=== PATIENT | male | born 1990 | race Caucasian/White ===

== ENCOUNTER 2018-07-16 13:30 | Emergency (ER) | payer SELFPAY ==
[2018-07-16] MEDS ORDERED: XYLOCAINE 1% HCL 20 ML MDV IJ ONE ×2 (13:44→14:09)
[2018-07-16] MEDS ORDERED: BACIGUENT PACKET TP ONE (13:44)
[2018-07-16] MEDS ORDERED: Adacel Vial IM ONE ×2 (13:44→14:08)
[2018-07-16] MEDS ORDERED: Sodium Chloride 0.9% 1000 ML 1,000 ML ONE (13:49)
--- NOTE | 2018-07-16 13:57 | ERPHSYRPT ---
- History of Present Illness Time Seen by Provider: 07/16/18 13:32 Source: patient Exam Limitations: no limitations Physician History: 27-year-old white male arrives with complaint of laceration to his left mid paige symptoms since just prior to arrival. According to patient he was working on a plank the playing fell patient fell approximately 10 feet he lacerated his left mid paige on the plank. He has a large 20 cm laceration to the left anterior paige. He denies any other complaints he has full range of motion to all extremities he denies any other injuries. Past medical history is negative. Past surgical history is negative. Social history patient denies tobacco alcohol or illict drug Use. Patient is unsure of as to when last tetanus was. Method of Injury: unknown (fell and lit left paige on plank at work) Occurred: just prior to arrival Quality: constant Severity of Pain-Max: mild Severity of Pain-Current: mild Lower Extremities Pain: leg: left Modifying Factors: Improves With: nothing Associated Symptoms: none Allergies/Adverse Reactions: No Known Drug Allergies Allergy (Verified 07/16/18 14:03) Home Medications: No Reportable Medications [No Reported Medications] 07/16/18 [History] - Review of Systems Constitutional: No Fever, No Chills Eyes: No Symptoms Ears, Nose, & Throat: No Symptoms Respiratory: No Cough, No Dyspnea Cardiac: No Chest Pain, No Edema, No Syncope Abdominal/Gastrointestinal: No Abdominal Pain, No Nausea, No Vomiting, No Diarrhea Genitourinary Symptoms: No Dysuria Musculoskeletal: Other (20 cm laceration left anterior paige) Skin: Other (20 cm laceration left anterior paige gaping) Neurological: No Dizziness, No Focal Weakness, No Sensory Changes Psychological: No Symptoms Endocrine: No Symptoms All Other Systems: Reviewed and Negative - Past Medical History Pertinent Past Medical History: No - Past Surgical History Past Surgical History: No - Nursing Vital Signs Nursing Vital Signs: Initial Vital Signs Temperature 98.1 F 07/16/18 13:43 Pulse Rate 91 H 07/16/18 13:43 Blood Pressure 130/82 07/16/18 13:43 O2 Sat by Pulse Oximetry 100 07/16/18 13:43 Pain Scale Pain Intensity 5 - Physical Exam General Appearance: mild distress Eyes, Ears, Nose, Throat Exam: moist mucous membranes Neck Exam: non-tender, supple Cardiovascular/Respiratory Exam: chest non-tender, normal breath sounds, regular rate/rhythm, no respiratory distress Gastrointestinal/Abdominal Exam: non-tender, guarding Back Exam: normal inspection, normal range of motion, No CVA tenderness, No vertebral tenderness, No decreased range of motion, No muscle spasm, No point tenderness Hips Exam: bilateral: non-tender, normal inspection, normal range of motion, no evidence of injury Legs Exam: right leg: non-tender, normal inspection, normal range of motion, left leg: other (20 cm laceration left anterior paige gaping) Knees Exam: bilateral knee: non-tender, normal inspection, normal range of motion, no evidence of injury Ankle Exam: bilateral ankle: non-tender, normal inspection, normal range of motion, no evidence of injury Foot Exam: bilateral foot: non-tender, normal inspection, normal range of motion , no evidence of injury DTR - Lower Extremities Exam: ankle (R): 2+, ankle (L): 2+ Neuro/Tendon Exam: normal sensation Mental Status Exam: alert, oriented x 3, cooperative Skin Exam: other (20 cm laceration left anterior paige gaping) SpO2 Interpretation: normal - Course Nursing assessment & vital signs reviewed: Yes - Radiology Exams Left Lower Leg X-ray Interpretation: Discussed w/ radiologist (x-ray left leg: Large proximal anterior soft tissue laceration. No other bony, articular or soft tissue abnormalities.) Ordered Tests: Active Orders 24 hr Category Date Time Status Wound Care STAT Care 07/16/18 13:44 Active LOWER LEG Stat Exams 07/16/18 13:51 Completed Medication Summary Discontinued Medications Generic Name Dose Route Start Last Admin Trade Name Freq PRN Reason Stop Dose Admin Bacitracin Zinc 0.9 gm 07/16/18 13:44 Baciguent Packet TP 07/16/18 13:45 STAT ONE Bacitracin Zinc Confirm 07/16/18 14:08 Baciguent Packet Administered 07/16/18 14:09 Dose 1 gm .ROUTE .STK-MED ONE Diphtheria/Tetanus/Acell Pertussis 0.5 ml 07/16/18 13:44 07/16/18 14:16 Adacel Vial IM 07/16/18 13:45 0.5 ml .ONCE ONE Administration Diphtheria/Tetanus/Acell Pertussis Confirm 07/16/18 14:08 Adacel Vial Administered 07/16/18 14:09 Dose 0.5 ml IM .STK-MED ONE Sodium Chloride Confirm 07/16/18 13:49 Sodium Chloride 0.9% 1000 Ml Administered 07/16/18 13:50 Dose 1,000 mls @ ud .ROUTE .STK-MED ONE Lidocaine HCl 5 ml 07/16/18 13:44 Xylocaine 1% Hcl 20 Ml Mdv IJ 07/16/18 13:45 STAT ONE Lidocaine HCl 5 ml 07/16/18 14:09 Xylocaine 1% Hcl 20 Ml Mdv IJ 07/16/18 14:10 STAT ONE Lidocaine HCl Confirm 07/16/18 14:08 Xylocaine 1% Hcl 20 Ml Mdv Administered 07/16/18 14:09 Dose 5 ml .ROUTE .STK-MED ONE Lidocaine HCl Confirm 07/16/18 14:09 Xylocaine 1% Hcl 20 Ml Mdv Administered 07/16/18 14:10 Dose 5 ml .ROUTE .STK-MED ONE - Progress Progress: improved Progress Note: 07/16/18 14:36 Laceration repair left lower leg. Laceration reassessed noted to be 18 cm. No foreign bodies are noted. Laceration was sterilely prepped and draped. laceration copiously irrigated by nurse with saline. Anesthetized with 1% lidocaine. Laceration repaired using 32 surgical liam. Bacitracin and sterile dressing are applied. 07/16/18 14:38 07/16/18 14:39 Patient received DTaP injection here in the emergency room. - Departure Time of Disposition: 14:37 Departure Disposition: Home Clinical Impression: Laceration of left leg Qualifiers: Encounter type: initial encounter Qualified Code(s): S81.812A - Laceration without foreign body, left lower leg, initial encounter Contusion of left leg Qualifiers: Encounter type: initial encounter Qualified Code(s): S80.12XA - Contusion of left lower leg, initial encounter Accidental fall Qualifiers: Encounter type: initial encounter Qualified Code(s): W19.XXXA - Unspecified fall, initial encounter Condition: Fair Critical Care Time: No Instructions: Laceration Repair With Liam (DC) Additional Instructions: Return home. Keep area clean and dry. Bacitracin to area until healed. Tylenol every 4 hours or Motrin every 6 hours as needed for pain. Follow-up with your company Dr.. Gauthier out in 10 days. Return or follow-up with your family doctor if signs of infection or problems. Return for acute distress or for severe symptoms. Cold packs to area 24-48 hours.
[2018-07-16 14:03] VITALS: BP 130/82; PULSE 91; O2SAT 100
[2018-07-16] MEDS ORDERED: BACIGUENT PACKET ONE (14:08)
[2018-07-16] MEDS ORDERED: XYLOCAINE 1% HCL 20 ML MDV ONE ×2 (14:08→14:09)
--- NOTE | 2018-07-16 14:31 | XRAY ---
Indication: Laceration following fall. Comparison: None 2 views of the left lower leg demonstrates large proximal anterior soft tissue laceration. No other bony, articular, or soft tissue abnormalities.
[2018-07-16] MEDS ORDERED: Sodium Chloride 0.9% 1000 ML 1,000 ML IV STA (14:47)
== END 2018-07-16 14:55 | disposition home or self-care (01) ==
LOC: ED 13:30
DX: S81.812A Laceration without foreign body, left lower leg, initial encounter (principal); W17.89XA Other fall from one level to another, initial encounter; Y93.89 Activity, other specified; Y92.9 Unspecified place or not applicable; Y99.0 Civilian activity done for income or pay
CPT/HCPCS: 12005; 73590; 90471; 90715; 96360; 96372; 99284; A9270-GY